=== PATIENT | female | born 1980 | race Caucasian/White ===

== ENCOUNTER 2017-06-10 05:31 | Outpatient (CLI) | payer BC ==
[~2017-06-10] VITALS: Ht 165.1 cm; Wt 117.9 kg
[~2017-06-10 05:31] MED LIST: IBP600T1 PO; OXYC-12 PO; VITAMINS
[2017-06-10] MEDS ORDERED: ALPR0.5T PO (09:49)
[2017-06-10] MEDS ORDERED: IRON1TAB89 PO (09:49)
[2017-06-10] MEDS ORDERED: CALC-140 PO (09:49)
[2017-06-10] MEDS ORDERED: MULT1TAB69 PO (09:49)
== END 2017-06-10 09:56 ==
LOC: PREOP 05:31
PROVIDERS: ATTEND Obstetrics & Gynecology
DX: Z01.818 Encounter for other preprocedural examination (principal); N92.0 Excessive and frequent menstruation with regular cycle; D64.9 Anemia, unspecified

== ENCOUNTER 2017-06-25 14:45 | Outpatient (RCR) | payer BC ==
[2017-06-11] MEDS: IRON SUCROSE 300 MG/NS 250 ML (IVPB) IV SCH ×2 (13:35)
[2017-06-11 14:33] VITALS: BP 136/78
[2017-06-11 15:41] VITALS: BP 136/78
--- NOTE | 2017-06-15 12:18 | Physician Query-Final Dx ---
HALIE GLORIA 06/15/17 1218: Clinic Account Progress/Dx Physician Query: Please give a diagnosis for the Venofer treatment thank you Date of Service Jun 11, 2017 at 12:57 RYANNE DUPREE DO 06/15/17 1248: Clinic Account Progress/Dx DIAGNOSIS: Diagnosis iron deficiency anemia low ferritin HALIE GLORIA Jun 15, 2017 12:18 RYANNE DUPREE DO Jun 15, 2017 12:48
[2017-06-18] MEDS: IRON SUCROSE 300 MG/NS 250 ML (IVPB) IV SCH ×2 (09:30)
[2017-06-18 11:00] VITALS: BP 124/71
[~2017-06-25] VITALS: Ht 165.1 cm; Wt 117.9 kg
[~2017-06-25 14:45] MED LIST changes: +ACHD5005 PO; +ALPR0.5T PO; +CALC-140 PO; +CATHETER FLUSH 10 ML SYR IV PRN; +D5 LR IV SOLUTION 1,000 ML IV SCH; +HYDROcodone/APAP 5 MG/325 MG (LORTAB) TAB PO PRN; +IBUPROFEN 600 MG (MOTRIN) TAB PO SCH; +IRON1TAB89 PO; +KETOROLAC 30 MG/ML VIAL IVP ONE; +MULT1TAB69 PO; +ONDANSETRON 4 MG/2 ML (SDV) Z0FRAN IVP PRN
[2017-06-25] MEDS ORDERED: KETOROLAC 30 MG/ML VIAL ONE (14:54)
[2017-06-25] MEDS: IRON SUCROSE 300 MG/NS 250 ML (IVPB) IV SCH ×2 (15:19)
[2017-06-25 15:21] VITALS: BP 154/73
[2017-06-25 16:49] VITALS: BP 154/73
== END 2017-09-09 | disposition home or self-care (01) ==
LOC: SDC 14:45
PROVIDERS: ATTEND Obstetrics & Gynecology
DX: D50.9 Iron deficiency anemia, unspecified (principal)
CPT/HCPCS: 96365; 96366

== ENCOUNTER → 2019-02-23 | Outpatient (CLI) | payer BC ==
[~2019-02-23] MED LIST changes: -CATHETER FLUSH 10 ML SYR IV PRN; -D5 LR IV SOLUTION 1,000 ML IV SCH; -HYDROcodone/APAP 5 MG/325 MG (LORTAB) TAB PO PRN; -IBUPROFEN 600 MG (MOTRIN) TAB PO SCH; -KETOROLAC 30 MG/ML VIAL IVP ONE; -ONDANSETRON 4 MG/2 ML (SDV) Z0FRAN IVP PRN
--- NOTE | 2019-02-23 14:02 | Diagnostic Imaging Report ---
PROCEDURE: US Non-ob pelvis comp/trans. TECHNIQUE: Multiple real-time grayscale images were obtained of the pelvis in various projections endovaginally. Transabdominal imaging was also performed. INDICATION: Heavy bleeding. FINDINGS: There are no prior studies available for comparison. The uterus is nongravid and not enlarged measuring 8.6 x 6.0 x 4.9 cm. The endometrium is not thickened measuring 5 mm. Within the endometrium in the region of the uterine fundus, there is a small linear poorly-defined area of increased echogenicity. This does not seem to be as big as would be expected for an IUD, but this could be a remnant of an IUD. Correlation with the patient's history would be recommended. The right ovary is not identified. The left ovary is unremarkable. There is no solid pelvic mass or free fluid collection evident. IMPRESSION: 1. The small irregular linear poorly-defined area of increased echogenicity within the endometrium in the uterine fundus could be secondary to an IUD. Correlation with the patient's history would be recommended. 2. There is no acute pelvic abnormality noted. 3. The right ovary was not identified. Dictated by: Dictated on workstation # [id number]
--- NOTE | 2019-02-24 15:23 | Diagnostic Imaging Report ---
EXAMINATION: Digital mammogram bilateral screening. INDICATION: Screening. This is the patient's baseline study. At this time, there are no current complaints. The current study was also evaluated with a Computer Aided Detection (CAD) system. 3-D tomosynthesis was also performed and reviewed. FINDINGS: There are scattered fibroglandular densities in both breasts, which could obscure a lesion. There is no primary or secondary sign of malignancy noted. IMPRESSION: 1. There is no evidence of malignancy. 2. The patient should have her annual bilateral screening mammogram on schedule in February of 2020. ACR BI-RADS Category 1: Negative. Result letter will be mailed to the patient. Note: At least 10% of breast cancer is not imaged by mammography. Dictated by: Dictated on workstation # [id number]
== END ==
LOC: RAD 11:07
PROVIDERS: ATTEND Obstetrics & Gynecology
DX: Z12.31 Encounter for screening mammogram for malignant neoplasm of breast (principal); N93.0 Postcoital and contact bleeding; N94.10 Unspecified dyspareunia
CPT/HCPCS: 76830; 76856; 77067

== ENCOUNTER 2019-04-03 12:53 | Outpatient (CLI) | payer BC ==
[~2019-04-03] VITALS: Ht 165 cm; Wt 125.8 kg
[2019-04-03] MEDS ORDERED: FERR325T5 PO (13:13)
[2019-04-03] MEDS ORDERED: FLUT9.9S NS (13:13)
[2019-04-03] MEDS ORDERED: ALPR1TAB7 PO (13:13)
[2019-04-03] MEDS ORDERED: MAGN400T39 PO (13:13)
[2019-04-03] MEDS ORDERED: CHOL20003 PO (13:13)
[2019-04-03] MEDS ORDERED: TRAZ-190 PO (13:13)
[2019-04-03] MEDS ORDERED: VENL37.52 PO (13:13)
[2019-04-03] MEDS ORDERED: CETI10CA PO (13:13)
[2019-04-03 13:19] VITALS: BP 142/80
[2019-04-03 14:22] LABS: BASOPHILS % (AUTO) 1 % (0-10); EOSINOPHILS # (AUTO) 0.1 10^3/uL (0.0-0.3); EOSINOPHILS % (AUTO) 1 % (0-10); HEMATOCRIT 37 % (35-52); HEMOGLOBIN 12.9 G/DL (11.5-16.0); LYMPHOCYTES # (AUTO) 1.7 X 10^3 (1.0-4.0); LYMPHOCYTES % (AUTO) 20 % (12-44); MEAN CORPUSCULAR HEMOGLOBIN 31 PG (25-34); MEAN CORPUSCULAR HGB CONC 35 G/DL (32-36); MEAN CORPUSCULAR VOLUME 89 FL (80-99); MEAN PLATELET VOLUME 9.6 FL (7.4-10.4); MONOCYTES # (AUTO) 0.9 X 10^3 (0.0-1.0); MONOCYTES % (AUTO) 11 % (0-12); NEUTROPHILS # (AUTO) 5.6 X 10^3 (1.8-7.8); NEUTROPHILS % (AUTO) 68 % (42-75); PLATELET COUNT 280 10^3/uL (130-400); RED CELL DISTRIBUTION WIDTH 13.2 % (10.0-14.5); WHITE BLOOD COUNT 8.3 10^3/uL (4.3-11.0)
[2019-04-03 14:24] LABS: BILIRUBIN,URINE NEGATIVE (NEGATIVE); CLARITY,URINE CLEAR; COLOR,URINE YELLOW; GLUCOSE, URINE (UA) NEGATIVE (NEGATIVE); KETONES,URINE NEGATIVE (NEGATIVE); LEUKOCYTE ESTERASE ,URINE NEGATIVE (NEGATIVE); NITRITE,URINE NEGATIVE (NEGATIVE); PH,URINE 5.5 (5-9); PROTEIN,URINE NEGATIVE (NEGATIVE)
[2019-04-03 14:37] LABS: BACTERIA,URINE TRACE /HPF; SQUAMOUS EPITHELIAL CELL,UR 0-2 /HPF
== END 2019-04-03 15:30 | disposition home or self-care (01) ==
LOC: PREOP 12:53
PROVIDERS: ATTEND Obstetrics & Gynecology
DX: N81.9 Female genital prolapse, unspecified (principal); N92.0 Excessive and frequent menstruation with regular cycle; N39.3 Stress incontinence (female) (male)
CPT/HCPCS: 36415; 81000; 85025; 86850; 86900; 86901; 87081

== ENCOUNTER → 2021-03-10 | Outpatient (CLI) | payer OTHER ==
[~2021-03-10] MED LIST changes: +ACET-78 PO; +ALPR1TAB7 PO; +CETI10CA PO; +CHOL20003 PO; +FERR325T5 PO; +FLUT9.9S NS; +IBUP-844 PO; +MAGN400T39 PO; +MULT-567 PO; -MULT1TAB69 PO; +OXC5T PO; +TRAZ-227 PO; +VENL37.52 PO
--- NOTE | 2021-03-10 17:58 | Diagnostic Imaging Report ---
EXAM: Digital mammogram bilateral screening COMPARISON: This study is compared to the prior exam of 02/23/2019. At this time, there are no current complaints. The current study was also evaluated with a Computer Aided Detection (CAD) system. FINDINGS: There are scattered fibroglandular densities in both breasts which could obscure a lesion. Overall, there does not appear to have been any significant change when compared to the prior exam. No primary or secondary sign of malignancy is noted. IMPRESSION: 1. There is no radiographic evidence for malignancy. 2. The patient should have her annual bilateral screening mammogram on schedule in February of 2022. ACR category 1 ACR BI-RADS Category 1: Negative. Result letter will be mailed to the patient. Note: At least 10% of breast cancer is not imaged by mammography. Dictated by: Dictated on workstation # [id number]
== END ==
LOC: RAD 10:15
PROVIDERS: ATTEND Obstetrics & Gynecology
DX: Z12.31 Encounter for screening mammogram for malignant neoplasm of breast (principal)
CPT/HCPCS: 77063; 77067